=== PATIENT | male | born 2000 ===

== ENCOUNTER 2025-10-01 21:12 | Emergency (ER) | payer OTHER, SELFPAY ==
--- OUTSIDE RECORDS SUMMARY | 2019-08-10 11:15 | XMS_ITS | Continuity of Care Document ---
Author Organization [facility] Address [address] [place] [address] Phone Care Team Providers Care Tufting Machine Fixer Name Role Phone Michele Davis Unavailable Unavailable Procedures Procedure Date Imm Admin Through 20 Yrs Of Age 019 MENB RP W/OMV VACCINE IM UDS Exempt Imm Admin Through 20 Yrs Of Age 019 Meningococcal Conjugate Vaccine 019 Imm Admin Through 20 Yrs Of Age 019 MENB RP W/OMV VACCINE IM UDS Exempt OFFICE/OUTPATIENT VISIT, EST IMMUNIZATION ADMIN H [place] VACC 3 DOSE IM OFFICE/OUTPATIENT VISIT, EST IMMUNIZATION ADMIN H [place] VACC 3 DOSE IM OFFICE/OUTPATIENT VISIT, EST IMMUNIZATION ADMIN H [place] VACC 3 DOSE IM IMMUNIZATION ADMIN, EACH ADD MENINGOCOCCAL VACCINE, IM TDAP VACCINE >7 IM Advance Directives Directive Yes / No Effective Date File Name No Information Encounters Encounter Description Practice Location Reason(s) For Visit Diagnoses Date Provider Providers Copied on Encounter [facility], [address], [place], [id number], [place] tel:[phone] [facility] No Information [facility]. [address], [place], [id number], [place]. tel:[phone] [facility], [address], [place], [id number], [place] tel:[phone] [facility] No Information [facility]. [address], [place], [id number], [place]. tel:[phone] OFFICE/OUTPAT IENT VISIT, [facility], [address], [place], [id number], [place] tel:[phone] [facility] No Information [facility]. [address], [place], [id number], [place]. tel:[phone] OFFICE/OUTPAT IENT VISIT, [facility], [address], [place], [id number], [place] tel:[phone] [facility] No Information [facility]. [address], [place], [id number], [place]. tel:[phone] OFFICE/OUTPAT IENT VISIT, [facility], [address], [place], [id number], [place] tel:[phone] [facility] Need for prophylactic vaccination with combined diphtheria-tet anus-pertussis (DTP) (DTaP) vaccine [facility]. [address], [place], [id number], [place]. tel:[phone] Family History Family Member Type Diagnosis Age At Onset No Information Immunizations Vaccine Date Status Comments meningococcal B, OMV, 2 dose schedule administered Source: New Immuniza tion Record MCV4 administered Source: New Imm unization Record meningococcal B, OMV, 2 dose schedule administered Source: New Immuniza tion Record HPV administered Note: Vis given . ; Source: New Immunization Record HPV administered Note: vis given . ; Source: New Immunization Record HPV administered Source: New Imm unization Record MCV4 (11-55 yrs) administered Source: New Immunization Record Tdap administered Note: vis given with all imms today, mother declines flu ; Source: New Immunization Record Payers Payer name Insurance type Covered democrat ID Mike yuan(s) Tj [id number] Tj [id number] Social History Type Description Quantity Date Captured Comments Sex Male Smoking Status No Information Sexual Orientation Straight or heterosexual Dec Gender Identity Male Chief Complaint And Reason For Visit No Information Reason For Referral Reason For Referral No Information Plan Of Treatment Date Type Action Status Goal Influenza vaccine. Due on Oc due Goal RLP. Due on due Goal Depression screening. Due on due Goal Depression screening. Due on due Goal Tdap due Goal RLP. Due on due Goal Influenza vaccine. Due on Au due Goal TD Vaccine. Due on 14 due Goal HPV (3rd). Due on 4 due Goal HPV (2nd). Due on 4 due Goal HPV (1st). Due on 4 due History Of Present Illness Encounter Date Complaint History Of Prese nt Illness No Information Functional Status Date Functional Assessmen t No Information Instructions Date Instruction Additional Infor mation No Information Assessments Type Assessment Date No Information Patient Care Teams Name Effective Dates (start - stop) Status Members No Information
[2025-10-01 21:21] VITALS: BP 166/92; PULSE 82; TEMP 37.1; O2SAT 100; BMI 27.6
--- NOTE | 2025-10-01 21:31 | ED_ITS ---
HPI HPI - General Adult General Chief complaint: Upper Respiratory Infection Stated complaint: SORE THROAT Time Seen by Provider: 10/01/25 21:23 Source: patient Mode of arrival: walk-in Limitations: no limitations History of Present Illness HPI narrative: Patient is a 25-year-old male who presents to the emergency department for sore throat that began this evening. He states he noticed the sore throat when he got home and he is not having any difficulty swallowing or speaking. No difficulty managing secretions. He has had no fevers, cough, congestion. He states he was concerned because he has multiple sick contacts at work today with strep throat and his is . No medications prior to arrival Related Data Previous Rx's ?Medication ?Instructions ?Recorded amoxicillin 500 mg capsule 500 mg PO TID 7 days #21 ca ps 10/01/25 Allergies Allergy/AdvReac Type Severity Reaction Status Date / Time No Known Drug Allergies Allergy Verified 10/01/25 21:23 Opioid HPI Opioid Management Most Recent Opioid Data: Last Pain Scale 1 10/01/25, 21:21 Review of Systems ROS Constitutional Denies: fever or chills Ears, nose, mouth, and throat Reports: throat pain; Denies: neck pain Respiratory Denies: shortness of breath or cough Gastrointestinal Denies: nausea or vomiting Musculoskeletal Denies: back pain or neck pain Integumentary/Breast Denies: rash Neurological Denies: headache Hematologic/Lymphatic Denies: easy bruising or easy bleeding PFSH PFSH Social History Little interest or pleasure in doing things: not at all Feeling down, depressed, or hopeless: not at all Exam Narrative Exam Narrative: General: No acute distress, comfortable, smiling HEENT: Uvula midline with no trismus or drooling. Airway widely open and patent. No redness or swelling under the tongue. No noted tonsillar edema. Minimal pharyngeal erythema. Respiratory: No respiratory distress, lungs clear Cardiac: Regular rate and rhythm Skin: Warm and dry Extremities: Normal range of motion Neuro: Alert and oriented, no focal neurodeficit Psych: Normal mood and affect Constitutional Vital Signs, click to edit/add: Last Vital Signs Temp 98.8 F 10/01/25 21:21 Pulse 82 10/01/25 21:21 Resp 14 10/01/25 21:21 BP 166/92 H 10/01/25 21:21 Pulse Ox 100 10/01/25 21:21 O2 Del Method Room Air 10/01/25 21:21 Course Vital Signs Vital signs: Vital Signs Temperature 98.8 F 10/01/25 21:21 Pulse Rate 82 10/01/25 21:21 Respiratory Rate 14 10/01/25 21:21 Blood Pressure 166/92 H 10/01/25 21:21 Pulse Oximetry 100 10/01/25 21:21 Oxygen Delivery Method Room Air 10/01/25 21:21 Temperature 98.8 F 10/01/25 21:21 Pulse Rate 82 10/01/25 21:21 Respiratory Rate 14 10/01/25 21:21 Blood Pressure 166/92 H 10/01/25 21:21 Pulse Oximetry 100 10/01/25 21:21 Oxygen Delivery Method Room Air 10/01/25 21:21 Medical Decision Making MDM Narrative Medical decision making narrative: Patient with positive strep exposure and symptoms, exam is benign with no evidence of tonsillar asymmetry or peritonsillar abscess. He is hemodynamically stable with clear speech and no difficulty managing secretions. He is empirically treated for strep as he has positive exposures at work. Work note provided. Return to emergency department if symptoms change or worsen peer Medical Records Medical records reviewed: Yes I reviewed the patient's medical records Lab Data Lab results reviewed: Yes I reviewed the patient's lab results Discharge Plan Discharge Chief Complaint: Upper Respiratory Infection Clinical Impression: Pharyngitis, Exposure to strep throat Patient Disposition: Home, Self-Care Time of Disposition Decision: 21:27 Condition: Good Prescriptions / Home Meds: New amoxicillin 500 mg capsule 500 mg PO TID 7 Days Qty: 21 0RF Print Language: Nigerien Instructions: Pharyngitis (ED) Referrals: EDWIN HINTON [Nurse Practitioner, Family Practice] - 1 week Discharge Date/Time: 10/01/25 21:44
[2025-10-01] MEDS: DEXAMETHASONE SOD PHOS 10 MG/ML VIAL PO (21:40)
[2025-10-01] MEDS: AMOXICILLIN 500 MG CAPSULE PO (21:40)
--- OUTSIDE RECORDS SUMMARY | 2025-10-01 21:47 | XMS_ITS | Clinical Summary ---
Author Organization [facility] Address [address] [place] [address] Care Team Providers Care Leather Tacker Name Role Phone Unavailable Primary Care Provider Unavailabl e Allergies No known active allergies Medications No known medications Encounters DateTypeDepartmentCare XgyhByvhkmtwuco02/06/2025 9:05 AM EDTOffice [facility] [address] [phone] Yen Castaneda, DMITRY Pre-employment examination (Primary Dx); Encounter for drug qwogfokrq64/06/2025Travelfrom Last 3 Months Social History Tobacco UseTypesPacks/DayYears UsedDateSmoking Tobacco: NeverSmokeless Tobacco: NeverAlcohol UseStandard Drinks/WeekCommentsYes0 (1 standard drink = 0.6 oz pure alcohol)Sex and Gender InformationValueDate RecordedSex Assigned at BirthNot on fileLegal EraNkeh7801/22/2023 7:22 PM EDTGender IdentityNot on fileSexual OrientationNot on file Last Filed Vital Signs Vital SignReadingTime TakenCommentsBlood Jwseavhk900/8210 9:14 AM EDT Zlexm807008/15/2025 9:14 AM DSHWtgxuplvhuv09.1 ??C (98.7 ??F)08/15/2025 9:14 AM EDTRespiratory Vxbs7447 9:14 AM EDTOxygen Yccqleujpj89%08/15/2025 9:14 AM EDTInhaled Oxygen Concentration--Kpsqbh94.4 kg (197 lb)08/15/2025 9:14 AM EDT Height--Body Mass Index-- Plan of Treatment Not on file
--- OUTSIDE RECORDS SUMMARY | 2025-10-01 21:47 | XMS_ITS | Clinical Summary ---
Author Organization [facility] Address [address] [place] [address] Phone Care Team Providers Care Biller Name Role Phone Unavailable Primary Care Provider Unavailabl e Social History Tobacco UseTypesPacks/DayYears UsedDateSmoking Tobacco: Never AssessedSex and Gender InformationValueDate RecordedSex Assigned at BirthNot on fileLegal Sex Male10/05/2022 1:00 PM ESTGender IdentityNot on fileSexual OrientationNot on file Plan of Treatment Health MaintenanceDue DateLast DoneCommentsHIV Vxnlblvql2002Lipid Panel 2002Yearly Adult Jjnaynny2002MMR Vaccines (1 of 1 - Standard series) 2003HPV Vaccines (1 - Male 3-dose series)2017Meningococcal B Vaccine (1 of 2 - Standard)2018Hepatitis C Awxqgqojn12/23/2020Hepatitis B Vaccines (1 of 3 - 19+ 3-dose series)1DTaP/Tdap/Td Vaccines (1 - Tdap)2024 Influenza Vaccine (#1)5COVID-19 Vaccine (1 - season)2025 Zoster Vaccines (1 of 2)2052HIB VaccinesAged OutNo longer eligible based on patient's age to complete this topicHepatitis A VaccinesAged OutNo longer eligible based on patient's age to complete this topicIPV VaccinesAged OutNo longer eligible based on patient's age to complete this topicMeningococcal VaccineAged OutNo longer eligible based on patient's age to complete this topic Pneumococcal Vaccine: Pediatrics and At-Risk Adult PatientsAged OutNo longer eligible based on patient's age to complete this topicRotavirus VaccinesAged Out No longer eligible based on patient's age to complete this topic Insurance * Guarantor: Han GomezAccount TypeRelation to PatientDate of PhoneBilling AddressPersonal/DlavahTtxx[address] [place] [address] * Guarantor: Han GomezAnilfredo TypeRelation to PatientDate of PhoneBilling AddressPersonal/CyrqqgHjgs[address] [place] [address] * Guarantor: Cami Gomez TypeRelation to PatientDate of PhoneBilling AddressPersonal/VctefkMbvm[address] [place] [address] * Guarantor: Cami Gomez TypeRelation to PatientDate of PhoneBilling AddressPersonal/UkpjqvAhje[address] [place] [address]
== END 2025-10-01 21:44 | disposition home or self-care (01) ==
LOC: ER 21:44
PROVIDERS: Emergency Provider Internal Medicine
DX: J02.9 Acute pharyngitis, unspecified (principal); Z20.818 Contact with and (suspected) exposure to other bacterial communicable diseases
CPT/HCPCS: 99283; J1100